=== PATIENT | female | born 1965 | race Caucasian/White ===

== ENCOUNTER 2020-01-09 05:44 | Day surgery (SDC) | payer OTHER ==
[~2020-01-09] VITALS: Ht 177.8 cm; Wt 81.4 kg
[~2020-01-09 05:44] MED LIST: thyroid med PO
[2020-01-09] MEDS ORDERED: CEFOTETAN PMX 2GM/50ML 50 ML IV ONE (06:00)
[2020-01-09] MEDS ORDERED: LACTATED RINGERS 1,000 ML IV SCH (06:01)
[2020-01-09 06:12] VITALS: BP 140/66
[2020-01-09] MEDS ORDERED: IRON PO (06:19)
[2020-01-09] MEDS ORDERED: VITAMIN D3 PO (06:19)
[2020-01-09] MEDS ORDERED: FOLIC ACID PO (06:19)
[2020-01-09] MEDS ORDERED: PROP50TA3 PO (06:19)
[2020-01-09] MEDS ORDERED: LIDOCAINE-MPF 1%, 2ML INFIL ONE (06:30)
[2020-01-09] MEDS ORDERED: GABAPENTIN 300 MG CAPSULE PO ONE (07:00)
[2020-01-09] MEDS ORDERED: ACETAMINOPHEN 500 MG TABLET PO ONE (07:00)
[2020-01-09] MEDS ORDERED: EPINEPHRINE 1 MG/ML, 1ML ONE (07:09)
[2020-01-09] MEDS ORDERED: BUPIVACAINE/PF 0.25% ONE (07:09)
[2020-01-09] MEDS ORDERED: HEPARIN 1,000 UNITS/ML, 10ML ONE (07:09)
[2020-01-09] MEDS ORDERED: MIDAZOLAM 1 MG/ML, 2ML ONE (07:10)
[2020-01-09] MEDS ORDERED: FENTANYL PF 250 MCG/5ML ONE (07:10)
[2020-01-09] MEDS ORDERED: PROPOFOL 10 MG/ML, 20ML ONE (07:12)
[2020-01-09] MEDS ORDERED: DEXAMETHASONE 4 MG/ML, 1ML ONE (07:12)
[2020-01-09] MEDS ORDERED: ONDANSETRON 2MG/ML, 2ML ONE (07:12)
[2020-01-09] MEDS ORDERED: NEOSTIGMINE 1 MG/ML, 10ML ONE (07:12)
[2020-01-09] MEDS ORDERED: ROCURONIUM 10MG/ML,5ML ONE (07:12)
[2020-01-09] MEDS ORDERED: GLYCOPYRROLATE 0.2MG/1ML, 5ML ONE (07:12)
[2020-01-09] MEDS ORDERED: SUCCINYLCHOLINE 20 MG/ML, 10ML ONE (07:12)
[2020-01-09] MEDS ORDERED: SODIUM CHLORIDE 0.9% PF 10ML ONE (07:25)
[2020-01-09] MEDS ORDERED: LIDOCAINE-MPF 2% ,5ML ONE (07:29)
[2020-01-09] MEDS ORDERED: PROMETHAZINE 25 MG/ML, 1ML IV PRN (07:30)
[2020-01-09] MEDS ORDERED: ONDANSETRON 2MG/ML, 2ML IV PRN (07:30)
[2020-01-09] MEDS ORDERED: FENTANYL PF 100 MCG/2ML IV PRN (07:30)
[2020-01-09] MEDS ORDERED: MEPERIDINE/PF 25MG/ML,1ML IVPush PRN (07:30)
[2020-01-09] MEDS ORDERED: EPHEDRINE 50 MG/ML, 1ML IVPush PRN (07:30)
[2020-01-09] MEDS ORDERED: OXYcodone 5 MG/5 ML ORAL.SOL UDC PO PRN (07:30)
[2020-01-09] MEDS ORDERED: hydrALAzine 20 MG/ML, 1ML IV PRN (07:30)
[2020-01-09] MEDS ORDERED: HYDROmorphone 2 MG/ML, 1ML IVPush PRN (07:30)
[2020-01-09] MEDS ORDERED: LABETALOL 5MG/ML, 20ML IV PRN (07:30)
[2020-01-09] MEDS ORDERED: KETOROLAC 30 MG/1 ML ONE (07:54)
[2020-01-09] MEDS ORDERED: FENTANYL PF 100 MCG/2ML ONE (10:31)
== END 2020-01-09 18:55 | disposition home or self-care (01) ==
LOC: OUT 05:44
PROVIDERS: ATTEND Obstetrics & Gynecology
DX: D25.9 Leiomyoma of uterus, unspecified (principal); N92.0 Excessive and frequent menstruation with regular cycle; N80.3 Endometriosis of pelvic peritoneum; N80.0 Endometriosis of uterus; D27.1 Benign neoplasm of left ovary; N87.9 Dysplasia of cervix uteri, unspecified; N88.8 Other specified noninflammatory disorders of cervix uteri; N73.6 Female pelvic peritoneal adhesions (postinfective); R10.2 Pelvic and perineal pain; D50.0 Iron deficiency anemia secondary to blood loss (chronic); Z79.890 Hormone replacement therapy; Z79.899 Other long term (current) drug therapy; Z85.3 Personal history of malignant neoplasm of breast; Z90.13 Acquired absence of bilateral breasts and nipples; Z90.49 Acquired absence of other specified parts of digestive tract; Z80.42 Family history of malignant neoplasm of prostate
CPT/HCPCS: 36415; 58554; 81025; 86850; 86900; 86923; 88305; 88307; J0171; J0330; J1100; J1885; J2250; J2405; J2704; J2710; J3010; J3490; J7120; S2900; J1644